=== PATIENT | female | born 1970 | race Caucasian/White ===

== ENCOUNTER 2021-04-12 20:17 | Emergency (ER) | payer OTHER ==
[~2021-04-12] VITALS: Ht 157.5 cm; Wt 63.5 kg
[2021-04-12] MEDS ORDERED: Cleocin HCl300 MG PO (21:22)
== END 2021-04-12 21:35 | disposition home or self-care (01) ==
LOC: ER 20:17
DX: L02.11 Cutaneous abscess of neck (principal); F17.210 Nicotine dependence, cigarettes, uncomplicated; Z88.0 Allergy status to penicillin; Z88.2 Allergy status to sulfonamides; Z88.1 Allergy status to other antibiotic agents
CPT/HCPCS: 10060; 99282-25; A9270